=== PATIENT | male | born 1945 | race Caucasian/White ===

== ENCOUNTER → 2017-04-11 | Outpatient (CLI) | payer MEDICARE, BC ==
--- NOTE | 2017-04-11 16:09 | RADIOLOGY REPORT (SQ) ---
EXAM DESCRIPTION: CHEST PA/LATERAL COMPLETED DATE/TIME: 04/11/2017 3:47 pm REASON FOR STUDY: Heart failure, unspecified COMPARISON: AP chest 09/12/2015 CT abdomen pelvis 11/14/2014 EXAM PARAMETERS: NUMBER OF VIEWS: two views TECHNIQUE: Digital Frontal and Lateral radiographic views of the chest acquired. RADIATION DOSE: NA LIMITATIONS: none FINDINGS: LUNGS AND PLEURA: Chronic scarring or bandlike atelectasis in the right middle lobe, seen on lateral view. This is unchanged from 11/14/2014. No fluffy alveolar infiltrates worrisome for edema or pneumonia. No pleural effusions. No pneumotho rax. MEDIASTINUM AND HILAR STRUCTURES: No masses or contour abnormalities. HEART AND VASCULAR STRUCTURES: Heart normal size. No evidence for failure. BONES: Diffuse thoracic spondylotic change HARDWARE: None in the chest. OTHER: No other significant finding. IMPRESSION: NO SIGNIFICANT RADIOGRAPHIC FINDING IN THE CHEST. TECHNICAL DOCUMENTATION: JOB ID: [id number] [employer]- All Rights Reserved
--- NOTE | 2017-04-11 19:52 | EKG REPORT ---
SEVERITY:- NORMAL ECG - SINUS RHYTHM : Confirmed by: Toni Parrish 11-Apr-2017 19:51:37
== END ==
LOC: OD 15:11
PROVIDERS: ATTEND Urology
DX: I50.9 Heart failure, unspecified (principal)
CPT/HCPCS: 71020; 93005; 93010

== ENCOUNTER → 2017-09-12 | Outpatient (CLI) | payer MEDICARE, BC ==
--- NOTE | 2017-09-12 15:25 | RADIOLOGY REPORT (SQ) ---
EXAM DESCRIPTION: PARANASAL SINUSES COMPLETED DATE/TIME: 09/12/2017 3:10 pm REASON FOR STUDY: CLUSTER HEADACHE SYNDROME, UNSPECIFIED, NOT INTRACTABLE,CHRONIC SINUSITIS N40.1 B ENIGN PROSTATIC HYPERPLASIA WITH LOWER URINARY TRACT N52.8 OTHER MALE ERECTILE DYSFUNCTION N41.1 C HRONIC PROSTATITIS COMPARISON: None. NUMBER OF VIEWS: Three views. TECHNIQUE: Images of the paranasal sinuses acquired. LIMITATIONS: None. FINDINGS: ORBITS: No fracture. No foreign body. SINUSES: No mucosal thickening. No air fluid levels. FACIAL BONES: No fracture. OTHER: No other significant finding. IMPRESSION: NO FOREIGN BODY OR FRACTURE. NO PLAIN RADIOGRAPHIC EVIDENCE FOR SINUS DISEASE. TECHNICAL DOCUMENTATION: JOB ID: [id number] [employer]- All Rights Reserved
== END ==
LOC: OD 14:41
PROVIDERS: ATTEND Urology
DX: G44.009 Cluster headache syndrome, unspecified, not intractable (principal); J32.9 Chronic sinusitis, unspecified; N40.1 Benign prostatic hyperplasia with lower urinary tract symptoms; N52.8 Other male erectile dysfunction; N41.1 Chronic prostatitis
CPT/HCPCS: 36415; 70220; 84403; 87070; 87205

== ENCOUNTER 2017-10-10 17:36 | Inpatient (IN) | payer MEDICARE, BC ==
[2017-10-10] MEDS ORDERED: PREDNISONE 20 MG TABLET PO ONE (18:27)
[2017-10-10] MEDS ORDERED: IPRATROPIUM/ALBUTEROL 0.5-2.5 MG/3 ML AMPUL NEB ONE ×3 (18:27→22:44)
[2017-10-10] MEDS ORDERED: ASPIRIN 81 MG TABLET, CHEWABLE PO ONE (18:28)
--- NOTE | 2017-10-10 18:31 | ER Document Report ---
ED Medical Screen (RME) - General Chief Complaint: Shortness Of Breath Stated Complaint: COUGH,SHORTNESS OF BREATH Time Seen by Provider: 10/10/17 18:22 Mode of Arrival: Wheelchair Information source: Patient Notes: 72 yo non dm, non htn, 5 negative cardiac caths prior to 2008 male with hx asbestos, chronic bronchitis. c/o cough, yellow drainage, left chest pain, wheezing, shortness of breath. Symptoms started yesterday. pulse ox down to 89% after breathing tx albuterol. Expiratory wheezing bilaterally. Did get flu shot this year. Sleeps with c pap. TRAVEL OUTSIDE OF THE [place] IN LAST 30 DAYS: No - Related Data Allergies/Adverse Reactions: naproxen [Naproxen] Allergy (Severe, Verified 10/10/17 18:18) ? nefazodone HCl [From Serzone] Allergy (Severe, Verified 10/10/17 18:18) ? venlafaxine HCl [From Effexor] Allergy (Severe, Verified 10/10/17 18:18) hallucinate yohimbine [Yohimbine] Allergy (Severe, Verified 10/10/17 18:18) ? Past Medical History - Past Medical History Cardiac Medical History: Denies: Hx Coronary Artery Disease, Hx Heart Attack, Hx Hypertension Pulmonary Medical History: Reports: Hx Asthma - Denies: Hx Bronchitis, Hx COPD, Hx Pneumonia Neurological Medical History: Denies: Hx Cerebrovascular Accident, Hx Seizures GI Medical History: Reports: Hx Hiatal Hernia, Hx Ulcer. Denies: Hx Hepatitis Infectious Medical History: Denies: Hx Hepatitis Past Surgical History: Denies: Hx Open Heart Surgery, Hx Pacemaker - Immunizations Hx Diphtheria, Pertussis, Tetanus Vaccination: Yes
--- NOTE | 2017-10-10 18:48 | RADIOLOGY REPORT (SQ) ---
EXAM DESCRIPTION: CHEST PA/LAT COMPLETED DATE/TIME: 10/10/2017 6:38 pm REASON FOR STUDY: chest pain COMPARISON: August 2015 EXAM PARAMETERS: NUMBER OF VIEWS: two views TECHNIQUE: Digital Frontal and Lateral radiographic views of the chest acquired. RADIATION DOSE: NA LIMITATIONS: none FINDINGS: LUNGS AND PLEURA: Linear density is identified in the lower chest anteriorly in the latera l projection which could represent atelectatic changes or a pneumonic infiltrate. This density is di fficult to identify on the PA film. Remaining lung maguire are clear. No pleural effusions are ident ified. There is a nonspecific prominence of interstitial markings MEDIASTINUM AND HILAR STRUCTURES: No masses or contour abnormalities. HEART AND VASCULAR STRUCTURES: Heart normal size. No evidence for failure. BONES: No acute findings. HARDWARE: None in the chest. OTHER: No other significant finding. IMPRESSION: Linear density best seen in the lateral projection as noted above which could represent atelectatic changes or minimal infiltrate. Remaining lung maguire are clear. Other findings as noted above TECHNICAL DOCUMENTATION: JOB ID: [id number]- All Rights Reserved
[2017-10-10 19:15] LABS: ABSOLUTE EOSINOPHILS # (AUTO) 0.2 10^3/uL (0.0-0.6); ABSOLUTE LYMPHOCYTES (AUTO) 1.4 10^3/uL (0.5-4.7); ABSOLUTE MONOCYTES (AUTO) 1.1 10^3/uL (0.1-1.4); ABSOLUTE NEUT (AUTO) 8.7 10^3/uL (1.7-8.2); BASOPHILS % (AUTO) 0.2 % (0-2); EOSINOPHILS % (AUTO) 1.6 % (0-6); HEMATOCRIT 43.5 % (37.9-51.0); HEMOGLOBIN 13.8 g/dL (13.5-17.0); MEAN CORPUSCULAR HEMOGLOBIN 23.3 pg (27.0-33.4); MEAN CORPUSCULAR HGB CONC 31.6 g/dL (32.0-36.0); MEAN CORPUSCULAR VOLUME 74 fl (80-97); MONOCYTES % (AUTO) 9.4 % (3-13); PLATELET COUNT 313 10^3/uL (150-450); RED CELL DISTRIBUTION WIDTH 18.8 % (11.5-14.0); SEGMENTED NEUTROPHILS % (AUTO) 76.8 % (42-78); TOTAL CELLS COUNTED % (AUTO) 100 %; WHITE BLOOD COUNT 11.3 10^3/uL (4.0-10.5)
[2017-10-10 19:38] LABS: ALANINE AMINOTRANSFERASE 30 U/L (21-72); ALBUMIN 4.8 g/dL (3.5-5.0); ALKALINE PHOSPHATASE 80 U/L (38-126); ANION GAP 13 (5-19); ASPARTATE AMINO TRANSFERASE 22 U/L (17-59); BILIRUBIN,DIRECT 0.2 mg/dL (0.0-0.4); BILIRUBIN,TOTAL 0.3 mg/dL (0.2-1.3); BLOOD UREA NITROGEN 23 mg/dL (7-20); CALCIUM 10.1 mg/dL (8.4-10.2); CARBON DIOXIDE 30 mmol/L (22-30); CHLORIDE 99 mmol/L (98-107); CREATINE KINASE 120 U/L (55-170); GLUCOSE 110 mg/dL (75-110); POTASSIUM 3.6 mmol/L (3.6-5.0); SODIUM 142.2 mmol/L (137-145); TOTAL PROTEIN 7.9 g/dL (6.3-8.2)
[2017-10-10 19:39] LABS: A TYPE INFLUENZA AG NEGATIVE (NEGATIVE); B INFLUENZA AG NEGATIVE (NEGATIVE)
[2017-10-10 20:02] LABS: TROPONIN I < 0.012 ng/mL
--- NOTE | 2017-10-10 20:24 | EKG REPORT ---
SEVERITY:- NORMAL ECG - SINUS RHYTHM : Confirmed by: Toni Parrish 10-Oct-2017 20:23:44
[2017-10-10] MEDS ORDERED: METHYLPREDNISOLONE INJ 125 MG/2 ML SDV IV ONE (20:53)
[2017-10-10] MEDS ORDERED: LEVOFLOXACIN 750 MG/D5W RTU 750 MG/150 ML RTUPB IV ONE (20:53)
--- NOTE | 2017-10-10 20:56 | ER Document Report ---
ED Respiratory Problem - General Chief Complaint: Shortness Of Breath Stated Complaint: COUGH,SHORTNESS OF BREATH Time Seen by Provider: 10/10/17 18:22 Mode of Arrival: Wheelchair Notes: Patient is a 72-year-old male comes emergency department for chief complaint of difficulty breathing, productive cough with yellow sputum, wheezing, and chills. He states he has been feeling ill for the past 2 days. He denies chest pain unless she is coughing, he denies any other complaints. Past medical history of COPD, chronic bronchitis, asbestos exposure, and he uses CPAP at home. He has had both influenza and pneumonia vaccinations. He does not use home oxygen but he does have a device to measure his oxygen saturation at home and states it was dropping down into the 80s at rest. TRAVEL OUTSIDE OF THE [place] IN LAST 30 DAYS: No - Related Data Allergies/Adverse Reactions: naproxen [Naproxen] Allergy (Severe, Verified 10/10/17 18:18) ? nefazodone HCl [From Serzone] Allergy (Severe, Verified 10/10/17 18:18) ? venlafaxine HCl [From Effexor] Allergy (Severe, Verified 10/10/17 18:18) hallucinate yohimbine [Yohimbine] Allergy (Severe, Verified 10/10/17 18:18) ? Past Medical History - General Information source: Patient - Social History Smoking Status: Never Smoker Chew tobacco use (# tins/day): No Frequency of alcohol use: None Drug Abuse: None Family History: Reviewed & Not Pertinent Patient has suicidal ideation: No Patient has homicidal ideation: No - Past Medical History Cardiac Medical History: Denies: Hx Coronary Artery Disease, Hx Heart Attack, Hx Hypertension Pulmonary Medical History: Reports: Hx Asthma - Denies: Hx Bronchitis, Hx COPD, Hx Pneumonia Neurological Medical History: Denies: Hx Cerebrovascular Accident, Hx Seizures Renal/ Medical History: Denies: Hx Peritoneal Dialysis GI Medical History: Reports: Hx Hiatal Hernia, Hx Ulcer. Denies: Hx Hepatitis Infectious Medical History: Denies: Hx Hepatitis Past Surgical History: Denies: Hx Open Heart Surgery, Hx Pacemaker - Immunizations Hx Diphtheria, Pertussis, Tetanus Vaccination: Yes Hx Pneumococcal Vaccination: 07/04/14 Review of Systems - Review of Systems Constitutional: No symptoms reported EENT: See HPI Cardiovascular: See HPI Respiratory: See HPI Gastrointestinal: No symptoms reported Genitourinary: No symptoms reported Male Genitourinary: No symptoms reported Musculoskeletal: No symptoms reported Skin: No symptoms reported Hematologic/Lymphatic: No symptoms reported Neurological/Psychological: No symptoms reported Physical Exam - Vital signs Vitals: Temp Pulse Resp BP Pulse Ox 98.4 F 112 H 32 H 152/71 H 93 10/10/17 17:38 10/10/17 17:38 10/10/17 17:38 10/10/17 17:38 10/10/17 17:38 Interpretation: Normal - General General appearance: Alert In distress: None - HEENT Head: Normocephalic, Atraumatic Eyes: Normal Pupils: PERRL - Respiratory Respiratory status: Labored, Tachypnea Chest status: Nontender Breath sounds: Decreased air movement, Wheezing Chest palpation: Normal - Cardiovascular Rhythm: Regular, Tachycardia Heart sounds: Normal auscultation, S1 appreciated, S2 appreciated Murmur: No - Abdominal Inspection: Normal Distension: No distension Bowel sounds: Normal Tenderness: Nontender. No: Tender, Guarding Organomegaly: No organomegaly - Back Back: Normal, Nontender. No: Tender - Extremities General upper extremity: Normal inspection, Nontender, Normal color, Normal ROM , Normal temperature General lower extremity: Normal inspection, Nontender, Normal color, Normal ROM , Normal temperature, Normal weight bearing. No: Shiraz's sign - Neurological Neuro grossly intact: Yes Cognition: Normal Orientation: AAOx4 Mariya Coma Scale Eye Opening: Spontaneous Mariya Coma Scale Verbal: Oriented [place] Coma Scale Motor: Obeys Commands Mariya Coma Scale Total: 15 Speech: Normal Motor strength normal: LUE, RUE, LLE, RLE Sensory: Normal - Psychological Associated symptoms: Normal affect, Normal mood - Skin Skin Temperature: Warm Skin Moisture: Dry Skin Color: Normal Course - Re-evaluation Re-evalutation: On initial presentation patient with mild respiratory distress with tachypnea, difficulty completing sentences, expiratory wheezes and a few scattered rhonchi. Oxygen saturation below 94% on room air but when placed on oxygen averages above 94%. Patient given multiple treatments, Solu-Medrol, on reexamination he continues to have wheezing and rhonchi but does sound more clear and no longer has tachypnea. He does appear clinically improved. CBC shows mild leukocytosis, chemistry generally unremarkable, troponin is not elevated. Chest x-ray suggestive of possible early pneumonia. Covering with Levaquin. After final treatment and magnesium patient continues to have wheezing. When he exerts he becomes diaphoretic and he is breathing becomes labored. I was planning to perform ambulation with pulse oxygenation but patient will not be able to tolerate it at this time. Discussed with family and with patient, patient will be discussed with hospitalist. Discussed with Dr. Palencia, internal medicine, patient will be admitted to telemetry observation for COPD exacerbation and pneumonia. - Vital Signs Vital signs: Temp Pulse Resp BP Pulse Ox 98.4 F 77 24 H 138/68 H 91 L 10/10/17 17:38 10/10/17 22:08 10/11/17 06:01 10/11/17 06:01 10/11/17 06:01 - Laboratory Result Diagrams: 10/11/17 05:05 10/11/17 05:05 Laboratory results interpreted by me: 10/10/17 10/10/17 10/10/17 18:51 18:51 23:28 WBC 11.3 H RBC 5.90 H MCV 74 L MCH 23.3 L MCHC 31.6 L RDW 18.8 H Lymphocytes % 12.0 L Absolute Neutrophils 8.7 H VBG pH 7.43 H BUN 23 H Discharge - Discharge Clinical Impression: COPD exacerbation Pneumonia Qualifiers: Pneumonia type: due to unspecified organism Laterality: unspecified laterality Lung location: unspecified part of lung Qualified Code(s): J18.9 - Pneumonia, unspecified organism Condition: Stable Disposition: ADMITTED OBSERVATION Admitting Provider: Hospitalist Unit Admitted: Telemetry
[2017-10-10] MEDS ORDERED: MAGNESIUM SULFATE/D5W 1 GM/100 ML RTUPB IV PRN (22:43)
[2017-10-10 23:38] LABS: VENOUS BLOOD BASE EXCESS 6.1 mmol/L; VENOUS BLOOD HCO3 31.5 mmol/L (20-32); VENOUS BLOOD PCO2 48.4 mmHg (35-63); VENOUS BLOOD PH 7.43 (7.30-7.42)
[2017-10-11] MEDS ORDERED: IPRATROPIUM/ALBUTEROL 0.5-2.5 MG/3 ML AMPUL NEB PRN (00:20)
[2017-10-11] MEDS ORDERED: CHLORPHENIRAMINE MALEATE 4 MG TABLET PO ONE (00:23)
[2017-10-11] MEDS ORDERED: MAGNESIUM HYDROXIDE SUSP 30 ML UDCUP PO PRN (00:26)
[2017-10-11] MEDS: DILTIAZEM HCL 30 MG TABLET PO SCH ×5 (01:00→23:43)
[2017-10-11] MEDS: IPRATROPIUM/ALBUTEROL 0.5-2.5 MG/3 ML AMPUL NEB SCH ×4 (01:45→20:16)
--- NOTE | 2017-10-11 05:04 | PDOC H&P ---
History of Present Illness Admission Date/PCP: 10/11/17 01:06 TYRONE SAENZ PA-C Patient complains of: Shortness of breath and cough History of Present Illness: RICHARDSON LAMBERT is a 72 year old male with a past medical history of COPD, chronic bronchitis, chronic sinusitis, anxiety and depression, chronic pain and PTSD. Patient presents with 4 days of shortness of breath, sinus drainage with postnasal drip and a productive cough of yellow sputum. He denies fever or sore throat. He denies chest pain. He had no improvement from over-the- counter Mucinex. He has had no trial of antibiotics. In the emergency room is found to have rails, leukocytosis, and infiltrate on chest x-ray. He is referred to the hospitalist for observation. Past Medical History Cardiac Medical History: Denies: Coronary Artery Disease, Myocardial Infarction, Hypertension Pulmonary Medical History: Reports: Asthma - , Chronic Obstructive Pulmonary Disease (COPD) Denies: Bronchitis, Pneumonia Neurological Medical History: Denies: Seizures GI Medical History: Reports: Hiatal Hernia Denies: Hepatitis Psychiatric Medical History: Reports: Post Traumatic Stress Disorder Hematology: Denies: Anemia, Sickle Cell Disease Past Surgical History Past Surgical History: Denies: Pacemaker Social History Information Source: Patient, [facility] Records Smoking Status: Never Smoker Frequency of Alcohol Use: None - Advance Directive Resuscitation Status: Full Code Family History Family History: COPD Parental Family History Reviewed: Yes Children Family History Reviewed: Yes Sibling(s) Family History Reviewed.: Yes Medication/Allergy Home Medications: Chlorzoxazone [Parafon Forte Dsc] 500 mg PO QID PRN 01/01/15 Diazepam [Valium] 10 mg PO Q6H PRN 01/01/15 Diltiazem HCl [Cardizem 30 mg Tablet] 1 tab PO Q6 01/01/15 Dutasteride [Avodart Lf 0.5 mg Capsule] 0.5 mg PO DAILY 01/01/15 Esomeprazole Magnesium [Nexium] 40 mg PO DAILY 01/01/15 Fluoxetine HCl [Prozac] 40 mg PO DAILY 01/01/15 Hydrochlorothiazide 25 mg PO DAILY 01/01/15 Nebulizer [Aeroeclipse] 1 each MC DAILY PRN 01/01/15 Oxybutynin Chloride [Ditropan Xl] 5 mg PO DAILY 04/09/15 Pravastatin Sodium [Pravachol] 20 mg PO DAILY 01/01/15 Prednisone [Deltasone 10 mg Tablet] 10 mg PO ASDIR PRN 01/01/15 Quetiapine Fumarate [Seroquel 25 mg Tablet] 25 mg PO QHS 01/01/15 Tamsulosin HCl [Flomax] 0.4 mg PO DAILY 01/01/15 Testosterone Enanthate [Delatestryl] 200 mg IM ASDIR PRN 01/01/15 Topiramate [Topamax 25 mg Tablet] 100 mg PO BID 01/01/15 Aspirin [Aspirin EC] 81 mg PO DAILY 02/10/16 Docusate Sodium [Colace 100 mg Capsule] 100 mg PO DAILY PRN 02/10/16 Doxycycline Hyclate 100 mg PO BID 02/10/16 Potassium Phosphate 280-160-250 1 cap PO ASDIR 02/10/16 Besifloxacin HCl [Besivance 0.6% Oph Susp 5 ml] 1 drop OP ASDIR PRN 02/16/16 Difluprednate [Durezol] 5 ml OP ASDIR PRN 02/16/16 Nepafenac [Ilevro] 1.7 ml OP ASDIR PRN 02/16/16 Allergies/Adverse Reactions: naproxen [Naproxen] Allergy (Severe, Verified 10/10/17 18:18) ? nefazodone HCl [From Serzone] Allergy (Severe, Verified 10/10/17 18:18) ? venlafaxine HCl [From Effexor] Allergy (Severe, Verified 10/10/17 18:18) hallucinate yohimbine [Yohimbine] Allergy (Severe, Verified 10/10/17 18:18) ? Review of Systems Constitutional: PRESENT: fatigue. ABSENT: chills, fever(s), headache(s), night sweats, weakness, weight gain, weight loss Eyes: ABSENT: visual disturbances Ears: ABSENT: hearing changes Cardiovascular: ABSENT: chest pain, dyspnea on exertion, edema, orthropnea, palpitations Respiratory: PRESENT: as per HPI, cough, dyspnea, sputum. ABSENT: hemoptysis Gastrointestinal: ABSENT: abdominal pain, constipation, diarrhea, hematemesis, hematochezia, nausea, vomiting Genitourinary: ABSENT: dysuria, hematuria Musculoskeletal: ABSENT: joint swelling Integumentary: ABSENT: rash, wounds Neurological: ABSENT: abnormal gait, abnormal speech, confusion, dizziness, focal weakness, syncope Psychiatric: PRESENT: anxiety. ABSENT: depression, homidical ideation, suicidal ideation Endocrine: ABSENT: cold intolerance, heat intolerance, polydipsia, polyuria Hematologic/Lymphatic: ABSENT: easy bleeding, easy bruising Physical Exam Vital Signs: Temp Pulse Resp BP Pulse Ox 98.4 F 77 27 H 151/72 H 90 L 10/10/17 17:38 10/10/17 22:08 10/11/17 04:01 10/11/17 04:00 10/11/17 04:01 General appearance: PRESENT: cooperative, mild distress Head exam: PRESENT: atraumatic, normocephalic Eye exam: PRESENT: conjunctiva pink, EOMI, PERRLA. ABSENT: scleral icterus Ear exam: PRESENT: normal external ear exam Mouth exam: PRESENT: moist, tongue midline Neck exam: ABSENT: carotid bruit, JVD, lymphadenopathy, thyromegaly Respiratory exam: PRESENT: accessory muscle use, prolonged expiratory phas, rales, retraction, rhonchi, tachypnea, wheezes Cardiovascular exam: PRESENT: RRR. ABSENT: diastolic murmur, rubs, systolic murmur Pulses: PRESENT: normal dorsalis pedis pul Vascular exam: PRESENT: normal capillary refill GI/Abdominal exam: PRESENT: normal bowel sounds, soft. ABSENT: distended, guarding, mass, organolmegaly, rebound, tenderness Rectal exam: PRESENT: deferred Extremities exam: PRESENT: full ROM. ABSENT: calf tenderness, clubbing, pedal edema Neurological exam: PRESENT: alert, awake, oriented to person, oriented to place , oriented to time, oriented to situation, CN II-XII grossly intact. ABSENT: motor sensory deficit Psychiatric exam: PRESENT: anxious Skin exam: PRESENT: dry, intact, warm. ABSENT: cyanosis, rash Results Impressions: Chest X-Ray 10/10/17 18:29 IMPRESSION: Linear density best seen in the lateral projection as noted above which could represent atelectatic changes or minimal infiltrate. Remaining lung maguire are clear. Other findings as noted above Assessment & Plan - Diagnosis (1) Pneumonia Qualifiers: Pneumonia type: due to unspecified organism Laterality: unspecified laterality Lung location: unspecified part of lung Qualified Code(s): J18.9 - Pneumonia, unspecified organism Is this a current diagnosis for this admission?: Yes Plan: Likely secondary to acute on chronic maxillary sinusitis. Empiric antibiotics, Flonase, chlorpheniramine, albuterol and Atrovent. Follow-up CBC consider additional imaging (2) COPD exacerbation Is this a current diagnosis for this admission?: Yes Plan: Flutter valve, albuterol and Atrovent. (3) Anxiety Is this a current diagnosis for this admission?: Yes Plan: Outpatient regiment. - Time Time Spent: 30 to 50 Minutes
[2017-10-11 05:23] LABS: ABSOLUTE LYMPHOCYTES (AUTO) 0.4 10^3/uL (0.5-4.7); ABSOLUTE NEUT (AUTO) 6.9 10^3/uL (1.7-8.2); BASOPHILS % (AUTO) 0.1 % (0-2); EOSINOPHILS % (AUTO) 0.1 % (0-6); HEMATOCRIT 44.1 % (37.9-51.0); HEMOGLOBIN 14.6 g/dL (13.5-17.0); LYMPHOCYTES % (AUTO) 5.3 % (13-45); MEAN CORPUSCULAR HEMOGLOBIN 24.3 pg (27.0-33.4); MEAN CORPUSCULAR HGB CONC 33.2 g/dL (32.0-36.0); MEAN CORPUSCULAR VOLUME 73 fl (80-97); MONOCYTES % (AUTO) 0.3 % (3-13); PLATELET COUNT 298 10^3/uL (150-450); RED BLOOD COUNT 6.02 10^6/uL (4.35-5.55); RED CELL DISTRIBUTION WIDTH 18.8 % (11.5-14.0); SEGMENTED NEUTROPHILS % (AUTO) 94.2 % (42-78); TOTAL CELLS COUNTED % (AUTO) 100 %; WHITE BLOOD COUNT 7.3 10^3/uL (4.0-10.5)
[2017-10-11 05:56] LABS: BLOOD UREA NITROGEN 19 mg/dL (7-20); CALCIUM 9.5 mg/dL (8.4-10.2); GLUCOSE 149 mg/dL (75-110)
[2017-10-11 05:57] LABS: ANION GAP 12 (5-19); CARBON DIOXIDE 27 mmol/L (22-30); CHLORIDE 103 mmol/L (98-107); POTASSIUM 3.6 mmol/L (3.6-5.0); SODIUM 141.6 mmol/L (137-145)
[2017-10-11] MEDS: LANSOPRAZOLE 30 MG TAB.RAP.DR PO SCH (07:05)
[2017-10-11] MEDS: DIAZEPAM 5 MG TABLET PO PRN (07:49)
[2017-10-11] MEDS: ACETAMINOPHEN 325 MG TABLET PO PRN (08:38)
[2017-10-11 09:44] LABS: MAGNESIUM 2.4 mg/dL (1.6-2.3); PHOSPHORUS 2.8 mg/dL (2.5-4.5)
[2017-10-11] MEDS: GUAIFENESIN 600 MG TABLET.SA PO SCH ×2 (09:54→21:17)
[2017-10-11] MEDS: DOCUSATE SODIUM 100 MG CAPSULE PO PRN (09:54)
[2017-10-11] MEDS: TOPIRAMATE 25 MG TABLET PO SCH ×2 (09:55→21:17)
[2017-10-11] MEDS: QUETIAPINE FUMARATE 25 MG TABLET PO PRN (09:55)
[2017-10-11] MEDS ORDERED: ASPIRIN 81 MG TABLET, ENT COATED PO SCH (10:00)
[2017-10-11] MEDS ORDERED: PREDNISONE 20 MG TABLET PO SCH (10:00)
[2017-10-11] MEDS ORDERED: TAMSULOSIN HCL 0.4 MG CAP.SR.24H PO SCH (10:00)
[2017-10-11] MEDS ORDERED: OXYCODONE-ACETAMINOPHEN 5-325 MG TABLET PO PRN (11:38)
[2017-10-11] MEDS ORDERED: LORAZEPAM INJ 2 MG/1 ML VIAL IV PRN (11:38)
[2017-10-11] MEDS ORDERED: GUAIFENESIN/D-METHORPHAN (200-20 MG) SYRUP 10 ML PO PRN (11:39)
[2017-10-11] MEDS ORDERED: DOXYCYCLINE HYCLATE 100 MG TABLET PO SCH (12:00)
[2017-10-11] MEDS: HEPARIN SOD (PORCINE) 5,000 UNIT/ML 1 ML SYRINGE SUBCUT SCH ×3 (12:27→21:17)
[2017-10-11] MEDS ORDERED: DOXYCYCLINE HYCLATE 100 MG TABLET PO ONE (13:00)
[2017-10-11] MEDS: FLUTICASONE NASAL SPRAY 50 MCG/SPRY 120 SPRAY/16 GM NASL SCH ×2 (14:04→21:17)
[2017-10-11] MEDS: METHYLPREDNISOLONE INJ 125 MG/2 ML SDV IV SCH ×2 (14:04→21:17)
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
[2017-10-11] MEDS: DOXYCYCLINE HYCLATE 100 MG TABLET PO SCH (21:17)
[2017-10-11] MEDS ORDERED: LEVOFLOXACIN 750 MG/D5W RTU 750 MG/150 ML RTUPB IV SCH (22:00)
[2017-10-12] MEDS: DIAZEPAM 5 MG TABLET PO PRN ×4 (00:07→22:54)
[2017-10-12] MEDS: QUETIAPINE FUMARATE 25 MG TABLET PO PRN ×2 (00:11→21:26)
[2017-10-12] MEDS: IPRATROPIUM/ALBUTEROL 0.5-2.5 MG/3 ML AMPUL NEB SCH ×4 (02:06→20:00)
[2017-10-12 04:51] LABS: ABSOLUTE LYMPHOCYTES (AUTO) 0.6 10^3/uL (0.5-4.7); ABSOLUTE MONOCYTES (AUTO) 0.1 10^3/uL (0.1-1.4); ABSOLUTE NEUT (AUTO) 10.2 10^3/uL (1.7-8.2); BASOPHILS % (AUTO) 0.1 % (0-2); HEMATOCRIT 42.4 % (37.9-51.0); HEMOGLOBIN 13.5 g/dL (13.5-17.0); LYMPHOCYTES % (AUTO) 5.1 % (13-45); MEAN CORPUSCULAR HEMOGLOBIN 23.8 pg (27.0-33.4); MEAN CORPUSCULAR HGB CONC 31.9 g/dL (32.0-36.0); MEAN CORPUSCULAR VOLUME 75 fl (80-97); MONOCYTES % (AUTO) 1.1 % (3-13); PLATELET COUNT 274 10^3/uL (150-450); RED BLOOD COUNT 5.69 10^6/uL (4.35-5.55); RED CELL DISTRIBUTION WIDTH 19.3 % (11.5-14.0); SEGMENTED NEUTROPHILS % (AUTO) 93.7 % (42-78); TOTAL CELLS COUNTED % (AUTO) 100 %; WHITE BLOOD COUNT 10.9 10^3/uL (4.0-10.5)
[2017-10-12] MEDS: HEPARIN SOD (PORCINE) 5,000 UNIT/ML 1 ML SYRINGE SUBCUT SCH ×3 (05:03→21:26)
[2017-10-12] MEDS: DILTIAZEM HCL 30 MG TABLET PO SCH ×4 (05:03→21:26)
[2017-10-12] MEDS: METHYLPREDNISOLONE INJ 125 MG/2 ML SDV IV SCH ×3 (05:03→21:26)
[2017-10-12] MEDS: LANSOPRAZOLE 30 MG TAB.RAP.DR PO SCH (05:03)
[2017-10-12 05:08] LABS: ANION GAP 12 (5-19); BLOOD UREA NITROGEN 30 mg/dL (7-20); CALCIUM 9.3 mg/dL (8.4-10.2); CARBON DIOXIDE 26 mmol/L (22-30); CHLORIDE 103 mmol/L (98-107); GLUCOSE 146 mg/dL (75-110); POTASSIUM 3.9 mmol/L (3.6-5.0); SODIUM 141.2 mmol/L (137-145)
[2017-10-12] MEDS ORDERED: OXYCODONE-ACETAMINOPHEN 5-325 MG TABLET PO PRN (08:30)
[2017-10-12] MEDS ORDERED: MAGNESIUM HYDROXIDE SUSP 30 ML UDCUP PO PRN (08:30)
[2017-10-12] MEDS ORDERED: TOPIRAMATE 100 MG TABLET PO SCH (10:00)
[2017-10-12] MEDS: FLUTICASONE NASAL SPRAY 50 MCG/SPRY 120 SPRAY/16 GM NASL SCH ×2 (10:28→21:26)
[2017-10-12] MEDS: TAMSULOSIN HCL 0.4 MG CAP.SR.24H PO SCH (10:28)
[2017-10-12] MEDS: DOXYCYCLINE HYCLATE 100 MG TABLET PO SCH (10:28)
[2017-10-12] MEDS: GUAIFENESIN 600 MG TABLET.SA PO SCH ×2 (10:28→21:26)
[2017-10-12] MEDS: ASPIRIN 81 MG TABLET, ENT COATED PO SCH (10:29)
[2017-10-12] MEDS: DOCUSATE SODIUM 100 MG CAPSULE PO PRN (10:31)
--- NOTE | 2017-10-12 18:22 | PDOC PROGRESS REPORT ---
Subjective Progress Note for:: 10/12/17 Subjective:: 72-year-old gentleman with past medical history of COPD Chronic bronchitis Chronic sinusitis Chronic pain PTSD Anxiety and depression The patient presented to the hospital on October 11 with a 4 day history of shortness of breath postnasal drip and cough productive of yellow sputum. He was diagnosed with left lower lobe pneumonia and started on antibiotics, steroids and azcnf-yci-[id number] neb treatments. Feels somewhat better today. Reason For Visit: COPD EXACERBATION, PNEUMONIA Physical Exam Vital Signs: Temp Pulse Resp BP Pulse Ox 97.7 F 78 18 125/58 L 94 10/12/17 15:11 10/12/17 15:11 10/12/17 15:11 10/12/17 15:11 10/12/17 15:11 Intake & Output 10/11/17 10/12/17 10/13/17 06:59 06:59 06:59 Intake Total 579 487 Output Total 800 850 Balance -221 -363 Weight 99.2 kg Additional comments: Elderly gentleman lying in bed not in acute distress HEENT: Pupils equal reactive to light moist pink oropharyngeal mucosa with no lesions no conjunctival discharge no scleral icterus Neck is supple no JVD trachea is midline Cardiac: S1-S2 regular no murmurs heard no peripheral edema no cyanosis no calf tenderness Respiratory: positive use of accessory muscles, wheezing bilaterally in all lung maguire-somewhat improved. Abdomen: Soft, no focal tenderness, normal bowel sounds, rectal exam deferred Skin: Warm and dry Neurologic: Awake and alert oriented 3 no facial droop speech is clear and fluent Results Laboratory Results: 10/12/17 04:01 10/12/17 04:01 10/12/17 10/12/17 04:01 04:01 WBC 10.9 H RBC 5.69 H Hgb 13.5 Hct 42.4 MCV 75 L MCH 23.8 L MCHC 31.9 L RDW 19.3 H Plt Count 274 Seg Neutrophils % 93.7 H Lymphocytes % 5.1 L Monocytes % 1.1 L Eosinophils % 0.0 Basophils % 0.1 Absolute Neutrophils 10.2 H Absolute Lymphocytes 0.6 Absolute Monocytes 0.1 Absolute Eosinophils 0.0 Absolute Basophils 0.0 Sodium 141.2 Potassium 3.9 Chloride 103 Carbon Dioxide 26 Anion Gap 12 BUN 30 H Creatinine 1.01 Est GFR ( Amer) > 60 Est GFR (Non-Af Amer) > 60 Glucose 146 H Calcium 9.3 Impressions: Chest X-Ray 10/10/17 18:29 IMPRESSION: Linear density best seen in the lateral projection as noted above which could represent atelectatic changes or minimal infiltrate. Remaining lung maguire are clear. Other findings as noted above Assessment & Plan - Diagnosis (1) COPD exacerbation Is this a current diagnosis for this admission?: Yes Plan: Neb treatments, supplemental oxygen, IV steroids. (2) Pneumonia Qualifiers: Pneumonia type: due to unspecified organism Laterality: unspecified laterality Lung location: unspecified part of lung Qualified Code(s): J18.9 - Pneumonia, unspecified organism Is this a current diagnosis for this admission?: Yes Plan: Day 2 of doxycycline p.o. Sputum cultures growing gram-positive cocci in pairs and gram-negative rods. Zosyn has been added for better coverage. We will follow-up on culture results. (3) PTSD (post-traumatic stress disorder) Is this a current diagnosis for this admission?: Yes Plan: Continue outpatient medications (4) Anxiety Is this a current diagnosis for this admission?: Yes - Time Time Spent with patient: 25-34 minutes
[2017-10-12] MEDS ORDERED: CEFTRIAXONE 1 GM/D5W RTU 1 GM/50 ML RTUPB IV SCH (19:00)
[2017-10-12] MEDS: LORAZEPAM INJ 2 MG/1 ML VIAL IV PRN (20:54)
[2017-10-12] MEDS: PIPERACILLIN SODIUM/TAZOBACTAM 3.375 GM in NORMAL SALINE 100 ML IV SCH (21:25)
[2017-10-12] MEDS: TOPIRAMATE 25 MG TABLET PO SCH (21:26)
[2017-10-12] MEDS ORDERED: LANSOPRAZOLE 30 MG TAB.RAP.DR PO PRN (22:51)
[2017-10-13] MEDS: PIPERACILLIN SODIUM/TAZOBACTAM 3.375 GM in NORMAL SALINE 100 ML IV SCH ×4 (02:16→20:34)
[2017-10-13] MEDS: IPRATROPIUM/ALBUTEROL 0.5-2.5 MG/3 ML AMPUL NEB SCH ×4 (02:17→20:16)
[2017-10-13] MEDS: LANSOPRAZOLE 30 MG TAB.RAP.DR PO SCH (05:30)
[2017-10-13] MEDS: METHYLPREDNISOLONE INJ 125 MG/2 ML SDV IV SCH ×3 (05:33→21:49)
[2017-10-13] MEDS: DILTIAZEM HCL 30 MG TABLET PO SCH ×4 (05:33→23:40)
[2017-10-13] MEDS: HEPARIN SOD (PORCINE) 5,000 UNIT/ML 1 ML SYRINGE SUBCUT SCH ×3 (05:34→21:49)
[2017-10-13] MEDS: TAMSULOSIN HCL 0.4 MG CAP.SR.24H PO SCH (09:42)
[2017-10-13] MEDS: FLUTICASONE NASAL SPRAY 50 MCG/SPRY 120 SPRAY/16 GM NASL SCH ×2 (09:43→21:49)
[2017-10-13] MEDS: GUAIFENESIN 600 MG TABLET.SA PO SCH ×2 (09:43→21:50)
[2017-10-13] MEDS: ASPIRIN 81 MG TABLET, ENT COATED PO SCH (09:48)
[2017-10-13] MEDS: DOCUSATE SODIUM 100 MG CAPSULE PO PRN (09:48)
[2017-10-13] MEDS ORDERED: DOXYCYCLINE HYCLATE 100 MG TABLET PO ONE (11:00)
--- NOTE | 2017-10-13 18:51 | PDOC PROGRESS REPORT ---
Subjective Progress Note for:: 10/13/17 Subjective:: 72-year-old gentleman with past medical history of COPD Chronic bronchitis Chronic sinusitis Chronic pain PTSD Anxiety and depression The patient presented to the hospital on October 11 with a 4 day history of shortness of breath postnasal drip and cough productive of yellow sputum. He was diagnosed with left lower lobe pneumonia and started on antibiotics, steroids and aeurw-yus-vsgcl neb treatments. Feels better today. Cough has improved. Reason For Visit: COPD EXACERBATION, PNEUMONIA Physical Exam Vital Signs: Temp Pulse Resp BP Pulse Ox 97.4 F 73 18 121/52 L 95 10/13/17 15:50 10/13/17 15:50 10/13/17 15:50 10/13/17 15:50 10/13/17 15:50 Intake & Output 10/12/17 10/13/17 10/14/17 06:59 06:59 06:59 Intake Total 579 2437 824 Output Total 800 3650 Balance -221 -1213 824 Weight 99.2 kg 100.3 kg Additional comments: Elderly gentleman sitting comfortably in bed HEENT: Pupils equal reactive to light moist pink oropharyngeal mucosa with no lesions no conjunctival discharge no scleral icterus Neck is supple no JVD trachea is midline Cardiac: S1-S2 regular no murmurs heard no peripheral edema no cyanosis no calf tenderness Respiratory: positive use of accessory muscles, wheezing bilaterally in all lung maguire Abdomen: Soft, no focal tenderness, normal bowel sounds, rectal exam deferred Results Laboratory Results: 10/12/17 04:01 10/12/17 04:01 Impressions: Chest X-Ray 10/10/17 18:29 IMPRESSION: Linear density best seen in the lateral projection as noted above which could represent atelectatic changes or minimal infiltrate. Remaining lung maguire are clear. Other findings as noted above Assessment & Plan - Diagnosis (1) COPD exacerbation Is this a current diagnosis for this admission?: Yes (2) Pneumonia Qualifiers: Pneumonia type: due to unspecified organism Laterality: unspecified laterality Lung location: unspecified part of lung Qualified Code(s): J18.9 - Pneumonia, unspecified organism Is this a current diagnosis for this admission?: Yes (3) PTSD (post-traumatic stress disorder) Is this a current diagnosis for this admission?: Yes (4) Anxiety Is this a current diagnosis for this admission?: Yes - Time Time Spent with patient: 25-34 minutes - Plan Summary Plan Summary: Day 3 of doxycycline. The 2 of Zosyn. Continue supplemental oxygen and IV steroids and bronchodilators. Continue outpatient medications for PTSD and anxiety
[2017-10-13] MEDS: ACETAMINOPHEN 325 MG TABLET PO PRN (20:34)
[2017-10-13] MEDS: LORAZEPAM INJ 2 MG/1 ML VIAL IV PRN (20:34)
[2017-10-13] MEDS: DOXYCYCLINE HYCLATE 100 MG TABLET PO SCH (21:49)
[2017-10-13] MEDS: TOPIRAMATE 25 MG TABLET PO SCH (21:50)
[2017-10-13] MEDS: QUETIAPINE FUMARATE 25 MG TABLET PO PRN (21:56)
[2017-10-13] MEDS: DIAZEPAM 5 MG TABLET PO PRN (21:56)
[2017-10-14] MEDS: IPRATROPIUM/ALBUTEROL 0.5-2.5 MG/3 ML AMPUL NEB SCH ×4 (02:05→19:45)
[2017-10-14] MEDS: PIPERACILLIN SODIUM/TAZOBACTAM 3.375 GM in NORMAL SALINE 100 ML IV SCH ×4 (03:11→22:55)
[2017-10-14] MEDS: DILTIAZEM HCL 30 MG TABLET PO SCH ×4 (05:49→23:02)
[2017-10-14] MEDS: METHYLPREDNISOLONE INJ 125 MG/2 ML SDV IV SCH (05:50)
[2017-10-14] MEDS: HEPARIN SOD (PORCINE) 5,000 UNIT/ML 1 ML SYRINGE SUBCUT SCH ×3 (05:50→22:58)
[2017-10-14] MEDS: LANSOPRAZOLE 30 MG TAB.RAP.DR PO SCH (05:50)
[2017-10-14 07:41] LABS: ALANINE AMINOTRANSFERASE 54 U/L (21-72); ALBUMIN 3.8 g/dL (3.5-5.0); ALKALINE PHOSPHATASE 69 U/L (38-126); ANION GAP 9 (5-19); ASPARTATE AMINO TRANSFERASE 42 U/L (17-59); BILIRUBIN,DIRECT 0.2 mg/dL (0.0-0.4); BILIRUBIN,TOTAL 0.5 mg/dL (0.2-1.3); BLOOD UREA NITROGEN 34 mg/dL (7-20); CALCIUM 8.8 mg/dL (8.4-10.2); CARBON DIOXIDE 28 mmol/L (22-30); CHLORIDE 104 mmol/L (98-107); GLUCOSE 144 mg/dL (75-110); MAGNESIUM 2.5 mg/dL (1.6-2.3); PHOSPHORUS 3.5 mg/dL (2.5-4.5); POTASSIUM 3.8 mmol/L (3.6-5.0); SODIUM 140.9 mmol/L (137-145); TOTAL PROTEIN 6.7 g/dL (6.3-8.2)
[2017-10-14] MEDS: FLUTICASONE NASAL SPRAY 50 MCG/SPRY 120 SPRAY/16 GM NASL SCH ×2 (09:27→22:55)
[2017-10-14] MEDS: ASPIRIN 81 MG TABLET, ENT COATED PO SCH (09:28)
[2017-10-14] MEDS: TAMSULOSIN HCL 0.4 MG CAP.SR.24H PO SCH (09:29)
[2017-10-14] MEDS: DOXYCYCLINE HYCLATE 100 MG TABLET PO SCH ×2 (09:29→22:55)
[2017-10-14] MEDS: DOCUSATE SODIUM 100 MG CAPSULE PO PRN (09:29)
[2017-10-14] MEDS: GUAIFENESIN 600 MG TABLET.SA PO SCH ×2 (09:30→22:54)
[2017-10-14] MEDS: DIAZEPAM 5 MG TABLET PO PRN (12:28)
[2017-10-14] MEDS ORDERED: METHYLPREDNISOLONE INJ 125 MG/2 ML SDV IV SCH (14:11)
--- NOTE | 2017-10-14 14:12 | PDOC PROGRESS REPORT ---
Subjective Progress Note for:: 10/14/17 Subjective:: 72-year-old gentleman with past medical history of COPD Chronic bronchitis Chronic sinusitis Chronic pain PTSD Anxiety and depression The patient presented to the hospital on October 11 with a 4 day history of shortness of breath postnasal drip and cough productive of yellow sputum. He was diagnosed with left lower lobe pneumonia and started on antibiotics, steroids and ediia-inq-wxhri neb treatments. He gets episodes of severe anxiety and coronary vasospam for which he takes Valium and Cardizem every 6 hours Breathing and cough have improved. Reason For Visit: COPD EXACERBATION, PNEUMONIA Physical Exam Vital Signs: Temp Pulse Resp BP Pulse Ox 97.6 F 72 18 120/57 L 96 10/14/17 12:10 10/14/17 12:10 10/14/17 12:10 10/14/17 12:10 10/14/17 12:10 Intake & Output 10/13/17 10/14/17 10/15/17 06:59 06:59 06:59 Intake Total 2437 1756 Output Total 3650 1080 Balance -1213 676 Weight 100.3 kg 100.1 kg Additional comments: Elderly gentleman sitting in bed, not in acute distress Neck is supple no JVD trachea is midline Cardiac: S1-S2 regular no murmurs heard no peripheral edema no cyanosis no calf tenderness Respiratory: no use of accessory muscles, faint wheezing bilaterally in all lung maguire- improved Abdomen: Soft, no focal tenderness, normal bowel sounds, rectal exam deferred Results Laboratory Results: 10/12/17 04:01 10/14/17 06:10 10/14/17 06:10 Sodium 140.9 Potassium 3.8 Chloride 104 Carbon Dioxide 28 Anion Gap 9 BUN 34 H Creatinine 0.99 Est GFR ( Amer) > 60 Est GFR (Non-Af Amer) > 60 Glucose 144 H Calcium 8.8 Phosphorus 3.5 Magnesium 2.5 H Total Bilirubin 0.5 AST 42 ALT 54 Alkaline Phosphatase 69 Total Protein 6.7 Albumin 3.8 10/14/17 06:10 NT-Pro-B Natriuret Pep 41 Impressions: Chest X-Ray 10/10/17 18:29 IMPRESSION: Linear density best seen in the lateral projection as noted above which could represent atelectatic changes or minimal infiltrate. Remaining lung maguire are clear. Other findings as noted above Assessment & Plan - Diagnosis (1) COPD exacerbation Is this a current diagnosis for this admission?: Yes Plan: Neb treatments, supplemental oxygen, IV steroids. (2) Pneumonia Qualifiers: Pneumonia type: due to unspecified organism Laterality: unspecified laterality Lung location: unspecified part of lung Qualified Code(s): J18.9 - Pneumonia, unspecified organism Is this a current diagnosis for this admission?: Yes Plan: On Zosyn and Doxycycline (3) PTSD (post-traumatic stress disorder) Is this a current diagnosis for this admission?: Yes Plan: Continue outpatient medications (4) Anxiety Is this a current diagnosis for this admission?: Yes Plan: Ativan as needed. - Time Time Spent with patient: 35 or more minutes
[2017-10-14] MEDS ORDERED: METHYLPREDNISOLONE INJ 40 MG/1 ML SDV IV ONE (15:00)
[2017-10-14] MEDS: DIAZEPAM 5 MG TABLET PO SCH ×2 (17:54→23:02)
[2017-10-14] MEDS: TOPIRAMATE 25 MG TABLET PO SCH (22:55)
[2017-10-14] MEDS: METHYLPREDNISOLONE INJ 40 MG/1 ML SDV IV SCH (22:55)
[2017-10-14] MEDS: QUETIAPINE FUMARATE 25 MG TABLET PO PRN (23:01)
[2017-10-15] MEDS: IPRATROPIUM/ALBUTEROL 0.5-2.5 MG/3 ML AMPUL NEB SCH ×4 (01:54→20:32)
[2017-10-15] MEDS: PIPERACILLIN SODIUM/TAZOBACTAM 3.375 GM in NORMAL SALINE 100 ML IV SCH ×4 (04:44→20:35)
[2017-10-15] MEDS: METHYLPREDNISOLONE INJ 40 MG/1 ML SDV IV SCH ×3 (05:44→22:25)
[2017-10-15] MEDS: DIAZEPAM 5 MG TABLET PO SCH ×4 (05:44→22:26)
[2017-10-15] MEDS: LANSOPRAZOLE 30 MG TAB.RAP.DR PO SCH (05:44)
[2017-10-15] MEDS: HEPARIN SOD (PORCINE) 5,000 UNIT/ML 1 ML SYRINGE SUBCUT SCH ×3 (05:44→22:25)
[2017-10-15] MEDS: DILTIAZEM HCL 30 MG TABLET PO SCH ×3 (05:44→22:26)
--- NOTE | 2017-10-15 09:30 | RADIOLOGY REPORT (SQ) ---
EXAM DESCRIPTION: CHEST PA/LAT COMPLETED DATE/TIME: 10/15/2017 9:19 am REASON FOR STUDY: Pneumonia follow up COMPARISON: 10/10/2017 EXAM PARAMETERS: NUMBER OF VIEWS: two views TECHNIQUE: Digital Frontal and Lateral radiographic views of the chest acquired. RADIATION DOSE: NA LIMITATIONS: none FINDINGS: LUNGS AND PLEURA: Linear opacities at the lung bases favoring subsegmental atelectasis. N o new airspace disease, pleural effusion, or pneumothorax. MEDIASTINUM AND HILAR STRUCTURES: No masses or contour abnormalities. HEART AND VASCULAR STRUCTURES: Heart normal size. No evidence for failure. BONES: No acute findings. HARDWARE: None in the chest. OTHER: No other significant finding. IMPRESSION: PROBABLE SUBSEGMENTAL ATELECTASIS AT THE LUNG BASES. NO CONSOLIDATION. TECHNICAL DOCUMENTATION: JOB ID: [id number] [employer]- All Rights Reserved
[2017-10-15] MEDS: TAMSULOSIN HCL 0.4 MG CAP.SR.24H PO SCH (11:05)
[2017-10-15] MEDS: ASPIRIN 81 MG TABLET, ENT COATED PO SCH (11:05)
[2017-10-15] MEDS: FLUTICASONE NASAL SPRAY 50 MCG/SPRY 120 SPRAY/16 GM NASL SCH ×2 (11:07→22:26)
[2017-10-15] MEDS: GUAIFENESIN 600 MG TABLET.SA PO SCH ×2 (11:07→22:26)
[2017-10-15] MEDS: DOCUSATE SODIUM 100 MG CAPSULE PO PRN (11:07)
[2017-10-15] MEDS: DOXYCYCLINE HYCLATE 100 MG TABLET PO SCH ×2 (11:07→22:26)
--- NOTE | 2017-10-15 11:09 | PDOC PROGRESS REPORT ---
Subjective Progress Note for:: 10/15/17 Subjective:: 72-year-old gentleman with past medical history of COPD Chronic bronchitis Chronic sinusitis Chronic pain PTSD Anxiety and depression The patient presented to the hospital on October 11 with a 4 day history of shortness of breath postnasal drip and cough productive of yellow sputum. He was diagnosed with left lower lobe pneumonia and started on antibiotics, steroids and pwcpp-wuh-qidwj neb treatments. He gets episodes of severe anxiety and coronary vasospam for which he takes Valium and Cardizem every 6 hours. He is requesting that he get the Valium and Cardizem together at 6 AM, 12 noon, 6 PM and 9:30 PM peer He feels better overall. Cough and shortness of breath have improved. He is doing well at rest without supplemental oxygen but tends to get hypoxic with exertion. Chest x-ray was repeated today and it shows improvement. Reason For Visit: COPD EXACERBATION, PNEUMONIA Physical Exam Vital Signs: Temp Pulse Resp BP Pulse Ox 97.3 F 68 18 123/60 96 10/15/17 07:40 10/15/17 07:40 10/15/17 07:40 10/15/17 07:40 10/15/17 07:40 Intake & Output 10/14/17 10/15/17 10/16/17 06:59 06:59 06:59 Intake Total 1756 1720 Output Total 1080 400 Balance 676 1320 Weight 100.1 kg 100.8 kg Additional comments: Elderly gentleman sitting up in his chair, appears comfortable Neck is supple no JVD trachea is midline Cardiac: S1-S2 regular no murmurs heard no peripheral edema no cyanosis no calf tenderness Respiratory: Few scattered rhonchi, no wheezing or crackles heart, normal respiratory effort next Abdomen: Soft, no focal tenderness, normal bowel sounds, rectal exam deferred Skin: Warm and Results Laboratory Results: 10/12/17 04:01 10/14/17 06:10 10/14/17 06:10 NT-Pro-B Natriuret Pep 41 Impressions: Chest X-Ray 10/15/17 00:00 IMPRESSION: PROBABLE SUBSEGMENTAL ATELECTASIS AT THE LUNG BASES. NO CONSOLIDATION. Assessment & Plan - Diagnosis (1) COPD exacerbation Is this a current diagnosis for this admission?: Yes (2) Pneumonia Qualifiers: Pneumonia type: due to unspecified organism Laterality: unspecified laterality Lung location: unspecified part of lung Qualified Code(s): J18.9 - Pneumonia, unspecified organism Is this a current diagnosis for this admission?: Yes (3) PTSD (post-traumatic stress disorder) Is this a current diagnosis for this admission?: Yes (4) Anxiety Is this a current diagnosis for this admission?: Yes - Time Time Spent with patient: 25-34 minutes - Plan Summary Plan Summary: Continue antibiotics, bronchodilators and steroids. Taper steroids gradually. Continue medications for PTSD anxiety and coronary vasospasms.
[2017-10-15] MEDS ORDERED: DILTIAZEM HCL 30 MG TABLET PO SCH (15:00)
[2017-10-15] MEDS: QUETIAPINE FUMARATE 25 MG TABLET PO PRN (22:25)
[2017-10-15] MEDS: TOPIRAMATE 25 MG TABLET PO SCH (22:26)
[2017-10-16] MEDS: IPRATROPIUM/ALBUTEROL 0.5-2.5 MG/3 ML AMPUL NEB SCH ×4 (02:18→20:00)
[2017-10-16] MEDS: PIPERACILLIN SODIUM/TAZOBACTAM 3.375 GM in NORMAL SALINE 100 ML IV SCH ×4 (02:30→22:18)
[2017-10-16] MEDS: DILTIAZEM HCL 30 MG TABLET PO SCH ×4 (05:24→22:19)
[2017-10-16] MEDS: METHYLPREDNISOLONE INJ 40 MG/1 ML SDV IV SCH ×3 (05:24→22:18)
[2017-10-16] MEDS: DIAZEPAM 5 MG TABLET PO SCH ×4 (05:24→22:19)
[2017-10-16] MEDS: LANSOPRAZOLE 30 MG TAB.RAP.DR PO SCH (05:24)
[2017-10-16] MEDS: HEPARIN SOD (PORCINE) 5,000 UNIT/ML 1 ML SYRINGE SUBCUT SCH (05:24)
[2017-10-16] MEDS: FLUTICASONE NASAL SPRAY 50 MCG/SPRY 120 SPRAY/16 GM NASL SCH ×2 (10:23→22:07)
[2017-10-16] MEDS: ASPIRIN 81 MG TABLET, ENT COATED PO SCH (10:23)
[2017-10-16] MEDS: TAMSULOSIN HCL 0.4 MG CAP.SR.24H PO SCH (10:24)
[2017-10-16] MEDS: GUAIFENESIN 600 MG TABLET.SA PO SCH ×2 (10:24→22:18)
[2017-10-16] MEDS: DOXYCYCLINE HYCLATE 100 MG TABLET PO SCH ×2 (10:24→22:18)
[2017-10-16] MEDS: DOCUSATE SODIUM 100 MG CAPSULE PO PRN (10:24)
--- NOTE | 2017-10-16 10:32 | ST Inp Modified Barium Swallow ---
Medical Diagnosis - Medical Diagnoses Medical Diagnosis Description & ICD-10 Code(s): pneumonia ST Inpatient MBS - General Date: 10/16/17 - History History Obtained From: Other - EMR -: Medical - PMH: COPD, chronic bronchitis, chronic sinusitis, anxiety and depression, chronic pain, PTSD Patient admitted to the hospital on 10/11/17 due to shortness of breath for 4 days and productive cough. MBSS ordered due to "concern for aspiration". Medications: Medications Reviewed Allergies: Refer to medical record - Subjective Current Nutritional Means: PO Current PO Diet: Regular Current Symptoms: Pneumonia Pain: Patient reports, 0/5 - Objective Assessment: Upright, Left Lateral - Food Trials Food Trials Used: Thin liquids, Pureed, Regular The Patient: Was Able to Self Feed - Assessment Labial Function: Within Normal Limits Lingual Function: Within Normal Limits Mandibular Function: Within Normal Limits Dentition: Partial Laryngeal Function: Volitional Swallow - WFL - Pharyngeal Stage Initiation of Pharyngeal Stage: Normal Decreased Laryngeal Elevation: Yes - mild Reduced Velo-Pharyngeal Closure: no Reduced Pressure Generation: No Reduced Tongue Base Retraction: No Pre-Swallowing Pooling in Valleculae: Mild - for liquid trials Pre-Swallowing Pooling in Pyriforms: None Reduced Thyro-Hyiod Approximation: No Reduced Epiglottic Excursion: No Reduced Pharyngeal Peristalsis: No Post Swallow Residuals in Valleculae: None Post Swallow Residuals in Pyriforms: None Post Swallow Residuals: no residuals Pahryngeal Stage Comments: Liquids seen to fill valleculae quickly prior to swallow, however, timely swallow reflex initiated, no valleculae residue. Penetration seen x1 for thin liquid. Repeated thin liquid trials with 3 trials of 2 or more consecutive sips, no further penetration seen, no aspiration seen. - Impression/Summary Laryngeal Penetration: Yes - x1 on thin liquids, Flash, during swallow Tracheal Aspiration: no Compensatory Strategies: None required. Patient Presents With: Normal swallow at eval Risk of Aspiration: Minimal Risk of Nutritional Compromise: WNL - Recommendations Solid Diet Recommendations: Regular Liquid Diet Recommendations: Thin Dysphagia Therapy with VISUAL MERCHANDISING ASSISTANT: No Recommended Techniques: Fully Upright During Meal, Small Bites and Sips - Time Total Time: 15 Total Timed Minutes: 15 Charge G Code? - - -: Yes ST F.L. Impairment Category - Rationale Based On Rationale Based On: Func. Asses. Tool Results - Swallowing Current G8996: CH 0% Impaired Goal G8997: CH 0% Impaired Discharge G8998: CH 0% Impaired
[2017-10-16] MEDS ORDERED: ENOXAPARIN SODIUM INJ 40 MG/0.4 ML DISP.SYRIN SUBCUT ONE (13:00)
--- NOTE | 2017-10-16 13:58 | RADIOLOGY REPORT (SQ) ---
EXAM DESCRIPTION: ARON SWALLOW COMPLETED DATE/TIME: 10/16/2017 8:56 am REASON FOR STUDY: Dysphagia, unspecified R 13.10, food in pharynx causing other injury, sequela T17. 228 S concern for aspiration COMPARISON: None. TECHNIQUE: Videofluoroscopic swallowing examination was performed in conjunction with speech patholo gy. Videofluoroscopic imaging was obtained and reviewed and these are the findings: RADIATION DOSE: Total fluoroscopy time: 1 minutes 25 seconds 1 fluoroscopy images saved to PACS. LIMITATIONS: None FINDINGS: The patient was brought into the fluoro room and placed upright on a modified barium swall ow chair. The patient was then given multiple consistencies mixed with barium to swallow under live fluoroscopic video guidance. According to the Speech Pathologist there was laryngeal penetration wit h thin liquids. No other laryngeal penetration and no tracheal aspiration. Normal oral and pharynge al transit time was observed. No significant post swallow residual seen. Please see speech patholog y report for further details and recommendations. IMPRESSION: LARYNGEAL PENETRATION THIN LIQUIDS ONLY. NO TRACHEAL ASPIRATION.PLEASE SEE SPEECH PATHO LOGIST REPORT FOR OTHER FINDINGS AND RECOMMENDATIONS. COMMENT: Quality ID [id number]: Final reports for procedures using fluoroscopy that document radiation exp osure indices, or exposure time and number of fluorographic images (if radiation exposure indices are not available) TECHNICAL DOCUMENTATION: JOB ID: [id number] [employer]- All Rights Reserved
[2017-10-16 14:11] LABS: HEMATOCRIT 47.6 % (37.9-51.0); HEMOGLOBIN 15.1 g/dL (13.5-17.0); MEAN CORPUSCULAR HEMOGLOBIN 23.5 pg (27.0-33.4); MEAN CORPUSCULAR HGB CONC 31.8 g/dL (32.0-36.0); MEAN CORPUSCULAR VOLUME 74 fl (80-97); PLATELET COUNT 326 10^3/uL (150-450); RED BLOOD COUNT 6.43 10^6/uL (4.35-5.55); RED CELL DISTRIBUTION WIDTH 20.2 % (11.5-14.0); WHITE BLOOD COUNT 16.5 10^3/uL (4.0-10.5)
[2017-10-16 14:14] LABS: INTERNATIONAL RATION (INR) 0.98; PROTHROMBIN TIME 13.7 SEC (11.4-15.4)
--- NOTE | 2017-10-16 16:25 | PDOC PROGRESS REPORT ---
Subjective Progress Note for:: 10/16/17 Subjective:: 72-year-old gentleman with past medical history of COPD Chronic bronchitis Chronic sinusitis Chronic pain PTSD Anxiety and depression The patient presented to the hospital on October 11 with a 4 day history of shortness of breath postnasal drip and cough productive of yellow sputum. He was diagnosed with left lower lobe pneumonia and started on antibiotics, steroids and huqcl-czh-vgnzl neb treatments. He gets episodes of severe anxiety and coronary vasospam for which he takes Valium and Cardizem every 6 hours. He is requesting that he get the Valium and Cardizem together at 6 AM, 12 noon, 6 PM and 9:30 PM He feels better overall. Cough and shortness of breath have improved. He is doing well at rest without supplemental oxygen but tends to get hypoxic with exertion. Chest x-ray was repeated on October 16 and it shows improvement. Monday the patient was telling the nurse that he gets severe anxiety feels like jumping out of the window if he does not get his Valium and Cardizem on time. He tells me that the nurse reportedly told him to go ahead and jump out of the window if he felt like it. The patient became very agitated at this and reportedly told the nurse that he was feeling suicidal. He tells me that he does not have any suicidal or homicidal ideations. He has no intentions to harm himself or anybody else. His cough and dyspnea have improved. Reason For Visit: COPD EXACERBATION, PNEUMONIA Physical Exam Vital Signs: Temp Pulse Resp BP Pulse Ox 98.3 F 82 18 131/65 H 94 10/16/17 11:12 10/16/17 13:56 10/16/17 13:56 10/16/17 11:12 10/16/17 11:12 Intake & Output 10/15/17 10/16/17 10/17/17 06:59 06:59 06:59 Intake Total 1720 2976 Output Total 400 1610 Balance 1320 1366 Weight 100.8 kg 100.8 kg Additional comments: Elderly gentleman sitting up in bed, not in distress Neck is supple no JVD trachea is midline Cardiac: S1-S2 regular no murmurs heard no peripheral edema no cyanosis no calf tenderness Respiratory: Few scattered rhonchi, no wheezing or crackles heart, normal respiratory effort next Abdomen: Soft, no focal tenderness, normal bowel sounds, rectal exam deferred Skin: Warm and dry Results Laboratory Results: 10/16/17 13:57 10/16/17 13:57 10/16/17 10/16/17 13:57 13:57 WBC 16.5 H RBC 6.43 H Hgb 15.1 Hct 47.6 MCV 74 L MCH 23.5 L MCHC 31.8 L RDW 20.2 H Plt Count 326 Creatinine 0.84 Est GFR ( Amer) > 60 Est GFR (Non-Af Amer) > 60 10/14/17 06:10 NT-Pro-B Natriuret Pep 41 Impressions: Chest X-Ray 10/15/17 00:00 IMPRESSION: PROBABLE SUBSEGMENTAL ATELECTASIS AT THE LUNG BASES. NO CONSOLIDATION. Modified Barium Swallow 10/16/17 00:00 IMPRESSION: LARYNGEAL PENETRATION THIN LIQUIDS ONLY. NO TRACHEAL ASPIRATION.PLEASE SEE SPEECH PATHOLOGIST REPORT FOR OTHER FINDINGS AND RECOMMENDATIONS. Assessment & Plan - Diagnosis (1) COPD exacerbation Is this a current diagnosis for this admission?: Yes (2) Pneumonia Qualifiers: Pneumonia type: due to unspecified organism Laterality: unspecified laterality Lung location: unspecified part of lung Qualified Code(s): J18.9 - Pneumonia, unspecified organism Is this a current diagnosis for this admission?: Yes (3) PTSD (post-traumatic stress disorder) Is this a current diagnosis for this admission?: Yes (4) Anxiety Is this a current diagnosis for this admission?: Yes - Time Time Spent with patient: 25-34 minutes - Plan Summary Plan Summary: Continue antibiotics, bronchodilators and steroids. Taper steroids gradually. Continue medications for PTSD anxiety and coronary vasospasms.
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
[2017-10-16] MEDS: QUETIAPINE FUMARATE 25 MG TABLET PO PRN (22:17)
[2017-10-16] MEDS: TOPIRAMATE 25 MG TABLET PO SCH (22:19)
[2017-10-17] MEDS: IPRATROPIUM/ALBUTEROL 0.5-2.5 MG/3 ML AMPUL NEB SCH ×3 (01:53→13:36)
[2017-10-17] MEDS: PIPERACILLIN SODIUM/TAZOBACTAM 3.375 GM in NORMAL SALINE 100 ML IV SCH ×3 (03:30→14:44)
[2017-10-17] MEDS: DIAZEPAM 5 MG TABLET PO SCH ×2 (06:09→11:19)
[2017-10-17] MEDS: METHYLPREDNISOLONE INJ 40 MG/1 ML SDV IV SCH ×2 (06:09→13:39)
[2017-10-17] MEDS: LANSOPRAZOLE 30 MG TAB.RAP.DR PO SCH (06:09)
[2017-10-17] MEDS: DILTIAZEM HCL 30 MG TABLET PO SCH ×2 (06:09→11:19)
[2017-10-17] MEDS: DOCUSATE SODIUM 100 MG CAPSULE PO PRN (09:31)
[2017-10-17] MEDS: TAMSULOSIN HCL 0.4 MG CAP.SR.24H PO SCH (09:31)
[2017-10-17] MEDS: DOXYCYCLINE HYCLATE 100 MG TABLET PO SCH (09:31)
[2017-10-17] MEDS: GUAIFENESIN 600 MG TABLET.SA PO SCH (09:31)
[2017-10-17] MEDS: FLUTICASONE NASAL SPRAY 50 MCG/SPRY 120 SPRAY/16 GM NASL SCH (09:32)
[2017-10-17] MEDS: ASPIRIN 81 MG TABLET, ENT COATED PO SCH (09:32)
[2017-10-17] MEDS ORDERED: ENOXAPARIN SODIUM INJ 40 MG/0.4 ML DISP.SYRIN SUBCUT SCH (10:00)
[2017-10-17 15:17] VITALS: BP 118/60
--- NOTE | 2017-10-17 17:09 | PDOC DISCHARGE SUMMARY ---
General - Admit/Disc Date/PCP Admission Date/Primary Care Provider: 10/11/17 17:51 TYRONE SAENZ PA-C Discharge Date: 10/17/17 - Discharge Diagnosis (1) Acute bronchitis Is this a current diagnosis for this admission?: Yes Summary: Pt was placed on steroids, breathing treatments, and antibiotics. Patient's respiratory function did improve and was no longer requiring oxygen at time of discharge. Patient does not have formal diagnosis of COPD however suspect that most likely this is a result of COPD. Patient will need to follow with pulmonary for formal lung studies test. (2) Anxiety Is this a current diagnosis for this admission?: Yes Summary: Patient will continue on patient's home medications (3) COPD exacerbation Is this a current diagnosis for this admission?: Yes Summary: Suspect acute exacerbation of COPD: Patient does not have formal diagnosis of COPD therefore he will need to be seen by her doctor for formal lung study test to confirm diagnosis. However patient was placed on breathing treatments, steroids, and antibiotics and has demonstrated significant improvement. Patient was requiring oxygen however at time of discharge patient was satting 95 % on room air. (4) PTSD (post-traumatic stress disorder) Is this a current diagnosis for this admission?: Yes Summary: Patient will continue on home medications. Patient was seen by mental health here during hospital stay due to, and he had made however patient was not suicidal or homicidal and this was confirmed by mental health provider Dr. Rivers (5) Pneumonia Is this a current diagnosis for this admission?: Yes Summary: Ruled out. Patient's chest x-ray was not consistent with pneumonia. - Additional Information Resuscitation Status: Full Code Discharge Diet: Cardiac Discharge Activity: Activity As Tolerated Prescriptions: Doxycycline Hyclate [Vibramycin 100 mg Tablet] 100 mg PO Q12 #10 tablet Ipratropium/Albuterol Sulfate [Duoneb 3 ml Ampul] 3 ml NEB RTQ6 #100 vial.neb Methylprednisolone [Medrol Dosepack (4 mg/Tab) 21 Tab/Dosepak] 4 mg PO ASDIR PRN #21 tab.ds.pk PRN Reason: Home Medications: Albuterol Sulfate [Proair HFA Inhalation Aerosol 8.5 gm MDI] 1 puff IH Q4HP PRN 10/11/17 Albuterol Sulfate [Ventolin 0.083% Neb 2.5 mg/3 mL Ampul] 3 ml NEB Q6HP PRN Aspirin [Adult Low Dose Aspirin EC] 81 mg PO QPM 10/11/17 Chlorzoxazone [Parafon Forte Dsc 500 mg Tablet] 500 mg PO QID 10/11/17 Desloratadine [Clarinex] 5 mg PO QAM 10/11/17 Diazepam [Valium] 10 mg PO QID 10/11/17 Diltiazem HCl [Cardizem 30 mg Tablet] 30 mg PO QID 10/11/17 Diphenhydramine HCl [Benadryl 25 mg Capsule] 25 mg PO DAILYP PRN 10/11/17 Dutasteride [Avodart] 0.5 mg PO DAILY 10/11/17 Esomeprazole Mag Trihydrate [Nexium] 40 mg PO DAILY 10/11/17 Fluoxetine HCl [Prozac] 40 mg PO DAILY 10/11/17 Fluticasone Propionate [Flonase Nasal [place] 50 Mcg/[place] 16 gm] 1 spray NASL QHS 10/11/17 Hydrochlorothiazide [Hydrodiuril 25 mg Tablet] 25 mg PO DAILY 10/11/17 Hydrocortisone Acetate [Anucort-Hc] 25 mg PO BID 10/11/17 Lactulose [Constulose 10 gm/15 mL Oral Solution] 20 ml PO QHS 10/11/17 Loteprednol Etabonate [Lotemax] 1 drop OU DAILY 10/11/17 Lysine HCl [l-Lysine] 500 mg PO DAILYP PRN 10/11/17 Mineral Oil/Petrolatum,White [Refresh P.m. Ointment] 0.25 inch OU QPM 10/11/17 Nystatin [Mycostatin Cream 15 gm] 1 applic TOP BID 10/11/17 Olopatadine HCl [Pataday] 1 drop OU QAM 10/11/17 Pravastatin Sodium [Pravachol] 20 mg PO DAILY 10/11/17 Propylene Glycol [Lubricant Eye Drops] 1 drop OU TIDP PRN 10/11/17 Psyllium Husk (with Sugar) [Metamucil Packet] 3.4 gm PO MEALS 10/11/17 Quetiapine Fumarate [Seroquel 25 mg Tablet] 25 mg PO QHS 10/11/17 Similisan Eye Drop 1 drop OU BID 10/11/17 Tamsulosin HCl [Flomax] 0.4 mg PO DAILY 10/11/17 Testosterone Cypionate [Depo-Testosterone] 1.5 ml IM [id number] 10/11/17 Topiramate [Topamax 25 mg Tablet] 75 mg PO QHS 10/11/17 Doxycycline Hyclate [Vibramycin 100 mg Tablet] 100 mg PO Q12 #10 tablet Ipratropium/Albuterol Sulfate [Duoneb 3 ml Ampul] 3 ml NEB RTQ6 #100 vial.neb Methylprednisolone [Medrol Dosepack (4 mg/Tab) 21 Tab/Dosepak] 4 mg PO ASDIR PRN #21 tab.ds.pk 10/17/17 History of Present Illness Patient complains of: Chief complaint of shortness of breath and cough History of Present Illness: RICHARDSON LAMBERT is a 72 year old male sent to the emergency room complaining of shortness of breath and cough patient had complained of 4 days of nasal drainage with postnasal drip and productive cough. Patient denied fever or sore throat. Patient's chest x-ray demonstrated evidence consistent with atelectasis but no infiltrate was noted at time of admission. Patient was placed on breathing treatments, steroids, and antibiotics for presumed COPD exacerbation/acute bronchitis. Patient demonstrated improvement throughout hospitalization for above diagnosis. However during hospitalization patient had made comment that he would jump out of the window if he did not see a medicine doctor. Mental health was contacted to evaluate patient's psyche. Mental health stated the patient was not suicidal or homicidal. Hospital Course Hospital Course: RICHARDSON LAMBERT is a 72 year old male sent to the emergency room complaining of shortness of breath and cough patient had complained of 4 days of nasal drainage with postnasal drip and productive cough. Patient denied fever or sore throat. Patient's chest x-ray demonstrated evidence consistent with atelectasis but no infiltrate was noted at time of admission. Patient was placed on breathing treatments, steroids, and antibiotics for presumed COPD exacerbation/acute bronchitis. Patient demonstrated improvement throughout hospitalization for above diagnosis. However during hospitalization patient had made comment that he would jump out of the window if he did not see a medicine doctor. Mental health was contacted to evaluate patient's psyche. Mental health stated the patient was not suicidal or homicidal. Physical Exam Vital Signs: Temp Pulse Resp BP Pulse Ox 98.1 F 74 16 118/60 94 10/17/17 15:11 10/17/17 15:11 10/17/17 15:11 10/17/17 15:11 10/17/17 15:11 Intake & Output 10/16/17 10/17/17 10/18/17 06:59 06:59 06:59 Intake Total 2976 3703 360 Output Total 1610 3150 Balance 1366 553 360 Weight 100.8 kg General appearance: PRESENT: no acute distress, well-developed, well-nourished Head exam: PRESENT: atraumatic, normocephalic Eye exam: PRESENT: conjunctiva pink, EOMI. ABSENT: scleral icterus Ear exam: PRESENT: normal external ear exam Mouth exam: PRESENT: moist, tongue midline Neck exam: ABSENT: carotid bruit, JVD, lymphadenopathy, thyromegaly Respiratory exam: PRESENT: other - Good breath sounds heard in all lung [place], no wheezing, no prolonged expiratory phase appreciated, no accessory muscle use. Cardiovascular exam: PRESENT: RRR. ABSENT: diastolic murmur, rubs, systolic murmur Pulses: PRESENT: normal dorsalis pedis pul Vascular exam: PRESENT: normal capillary refill GI/Abdominal exam: PRESENT: normal bowel sounds, soft. ABSENT: distended, guarding, mass, organolmegaly, rebound, tenderness Rectal exam: PRESENT: deferred Extremities exam: PRESENT: full ROM. ABSENT: calf tenderness, clubbing, pedal edema Neurological exam: PRESENT: alert, awake, oriented to person, oriented to place , oriented to time, oriented to situation, CN II-XII grossly intact. ABSENT: motor sensory deficit Psychiatric exam: PRESENT: flat affect Skin exam: PRESENT: dry, intact, warm. ABSENT: cyanosis, rash Results Laboratory Results: 10/16/17 13:57 10/16/17 13:57 10/14/17 06:10 NT-Pro-B Natriuret Pep 41 Impressions: Chest X-Ray 10/15/17 00:00 IMPRESSION: PROBABLE SUBSEGMENTAL ATELECTASIS AT THE LUNG BASES. NO CONSOLIDATION. Modified Barium Swallow 10/16/17 00:00 IMPRESSION: LARYNGEAL PENETRATION THIN LIQUIDS ONLY. NO TRACHEAL ASPIRATION.PLEASE SEE SPEECH PATHOLOGIST REPORT FOR OTHER FINDINGS AND RECOMMENDATIONS. Plan Time Spent: Greater than 30 Minutes
== END 2017-10-17 16:07 | disposition home health service (06) | DRG 192 ==
LOC: ER 17:36 → EH 10-11 01:06 → 4N 10-11 15:35 → OBSVTOIN 10-11 17:51
PROVIDERS: ADMIT Internal Medicine; ATTEND Internal Medicine
PROC: 3E0F73Z Introduction of Anti-inflammatory into Respiratory Tract, Via Natural or Artificial Opening (ICD-10-PCS; principal; 2017-10-11)
PROC: 5A09457 Assistance with Respiratory Ventilation, 24-96 Consecutive Hours, Continuous Positive Airway Pressure (ICD-10-PCS; 2017-10-11)
DX: J44.1 Chronic obstructive pulmonary disease with (acute) exacerbation (principal); J20.9 Acute bronchitis, unspecified; J44.0 Chronic obstructive pulmonary disease with (acute) lower respiratory infection; F41.9 Anxiety disorder, unspecified; F43.10 Post-traumatic stress disorder, unspecified; J32.9 Chronic sinusitis, unspecified; F32.9 Major depressive disorder, single episode, unspecified; G89.29 Other chronic pain; K44.9 Diaphragmatic hernia without obstruction or gangrene; J01.00 Acute maxillary sinusitis, unspecified; J32.0 Chronic maxillary sinusitis; Z79.82 Long term (current) use of aspirin; Z79.899 Other long term (current) drug therapy; Z88.8 Allergy status to other drugs, medicaments and biological substances; Z83.6 Family history of other diseases of the respiratory system
CPT/HCPCS: 36415; 71046; 74230; 80048; 80053; 82550; 82553; 82565; 82803; 83735; 83880; 84100; 84484; 85025; 85027; 85610; 85730; 87040; 87070; 87205; 87804; 93005; 93010; 94640; 94660; 94668; 94799; 96365; 96372; 96375; 96376; 99285; G0378; G8978-GP; G8979-GP; G8980-GP; G8996-GN; G8997-GN; G8998-GN; J1644; J1650; J1956; J2060; J2543; J2920; J2930; J3475; J3490; J7512; J7620

== ENCOUNTER → 2020-01-25 | Outpatient (CLI) | payer MEDICARE, BC ==
--- NOTE | 2020-01-25 11:17 | ER RDC ASSESSMENT REPORT ---
Intake - In the Last 14 days Have you traveled outside [place]?: No Have you been in close contact with someone CONFIRMED: No Worked in Healthcare?: No - Symptoms Subjective Fever([place] feverish): No Chills: Yes Muscule Aches: Yes Runny Nose: Yes Sore Throat: No Cough (New or worsening chronic cough): Yes Shortness of breath: Yes Nausea or Vomiting: Yes Headache: Yes Abdominal Pain: Yes Diarrhea(3 or more loose stools in last 24 hours): Yes - Do you have any of the following Chronic lung disease: Asthma or emphysema or COPD: Yes Chronic Lung Disease Comment: COPD Cystic Fibrosis: No Diabetes: No High Blood Pressure: Yes Cardiovascular Disease: Yes Chronic Kidney Disease: Yes Chronic Liver Disease: No Chronic blood disorder like Sickle Cell Disease: No Weak immune system due to disease or medication: No Neurologic condition that limits movement: No Developmental delay - Moderate to Severe: No Recent (within past 2 weeks) or current : No Morbid Obesity (>100 pounds over ideal weight): No Other Comment: History of anxiety and PTSD. - Objective Temperature: 96.6 F Pulse Rate: 88 Respiratory Rate: 14 Blood Pressure: 148/75 O2 Sat by Pulse Oximetry: 95 Objective: Patient is a well-appearing 74-year-old male who presents today for COVID-19 screening. Disposition: Home; Selfcare General - General Stated Complaint: Upper respiratory symptoms x1 month Mode of Arrival: Ambulatory Information source: Patient Notes: The patient was evaluated during the global COVID-19 pandemic. That diagnosis was suspected/considered upon initial presentation. Their evaluation, treatment, and testing was consistent with current guidelines for patients who present with complaints or symptoms that may be related to COVID-19. - HPI Patient complains to provider of: Upper respiratory symptoms x1 month Onset: Other - 1 month Onset/Duration: Persistent Quality of pain: Achy Severity: Mild Context: Generalized body aches. Associated symptoms: Body/muscle aches, Productive cough, Diarrhea, Headache, Nausea, Vomiting, Rhinnorhea, Shortness of breath Exacerbated by: Supine Relieved by: Denies Similar symptoms previously: No Recently seen / treated by doctor: No - Related Data Allergies/Adverse Reactions: naproxen [Naproxen] Allergy (Severe, Verified 10/10/17 18:18) ? nefazodone HCl [From Serzone] Allergy (Severe, Verified 10/10/17 18:18) ? venlafaxine HCl [From Effexor] Allergy (Severe, Verified 10/10/17 18:18) hallucinate yohimbine [Yohimbine] Allergy (Severe, Verified 10/10/17 18:18) ? Past Medical History - Social History Smoking Status: Never Smoker Cigarette use (# per day): No Chew tobacco use (# tins/day): No Smoking Education Provided: No Frequency of alcohol use: None Drug Abuse: None Occupation: Retired Lives with: Family Family History: Reviewed & Not Pertinent Patient has suicidal ideation: No Patient has homicidal ideation: No - Past Medical History Cardiac Medical History: Denies: Hx Coronary Artery Disease, Hx Heart Attack, Hx Hypertension Pulmonary Medical History: Reports: Hx Asthma - INFANT Denies: Hx Bronchitis, Hx COPD, Hx Pneumonia Neurological Medical History: Denies: Hx Cerebrovascular Accident, Hx Seizures Renal/ Medical History: Denies: Hx Peritoneal Dialysis GI Medical History: Reports: Hx Hiatal Hernia, Hx Ulcer. Denies: Hx Hepatitis Psychiatric Medical History: Reports: Hx Depression, Hx Post Traumatic Stress Disorder Infectious Medical History: Denies: Hx Hepatitis Past Surgical History: Denies: Hx Open Heart Surgery, Hx Pacemaker Physical Exam - General In distress: None Notes: PHYSICAL EXAMINATION: GENERAL: Well-appearing and in no acute distress. HEAD: Atraumatic, normocephalic. EYES: sclera anicteric, conjunctiva are normal. ENT: nares patent. Moist mucous membranes. NECK: Normal range of motion, supple without lymphadenopathy. LUNGS: CTAB and equal. No wheezes rales or rhonchi. HEART: Regular rate and rhythm without murmurs. EXTREMITIES: Normal range of motion, no pitting edema. No cyanosis. BACK: No midline or CVA tenderness. NEUROLOGICAL: Cranial nerves grossly intact. Normal speech. Normal gait. PSYCH: Normal mood, normal affect. SKIN: Warm, Dry, normal color and turgor, no obvious lesions or rash noted. Diagnostic Results Laboratory Results: Patient advised at this time they are considered a Person Under Investigation (PUI) for the COVID-19 Coronavirus. They have been made aware it is currently taking 5-7 days to receive their results, and [facility] will call to advise them of their result, whether it is POSITIVE or NEGATIVE. Patient Education/Counseling Counseling/Education: Patient presents with upper respiratory symptoms worrisome for possible COVID- 19. Patient does not have symptoms worrisome as an emergency such as difficulty breathing, shortness of breath, chest pain, pressure, confusion or cyanosis. Patient appears suitable for discharge. Patient's vital signs are stable and patient is nontoxic in appearance. Good return precautions have been discussed with patient, patient verbalized understanding and is agreeable with discharge plan of care at this time. Patient provided COVID-19 discharge instructions to include: As a person under investigation for COVID-19, the [facility], division of public health advises you to adhere to the following guidance until your test results are reported to you. If your test result is positive, you will receive additional information from your provider and your local health department at that time. Remain at home until you are cleared by the health provider or public health authorities. Keep a log of visitors to your home, notify any visitors to your home of your isolation status. If you plan to move to a new address or leave the [facility], notify the local [facility] department in your County. Call your doctor or seek care if you have an urgent medical need. Before seeking medical care, call ahead to get instructions from the provider before arriving at the medical office clinic or hospital. Notify them that you are being tested for the virus that causes COVID-19 so that arrangements can be made, as necessary, to prevent transmission to others in the healthcare setting. Next, notify the local health department in your county. If a medical emergency arises and you need to call 911, inform dispatch and the first responders that you are being tested for the virus that causes COVID-19. Next, notify the [facility] health department in your county. Guidance for worsening S/SX: For worsening symptoms, patient has been advised to contact their Primary Care Provider, or go to the nearest Emergency Department. RDC Discharge - Discharge Clinical Impression: COVID-19 Screening URI (upper respiratory infection) Qualifiers: URI type: unspecified URI Qualified Code(s): J06.9 - Acute upper respiratory infection, unspecified Condition: Stable Disposition: Home; Selfcare
[2020-01-25 11:22] VITALS: BP 148/75
== END ==
LOC: RDC 10:39
PROVIDERS: ATTEND Nurse Practitioner Family
DX: J06.9 Acute upper respiratory infection, unspecified (principal); Z20.828 Contact with and (suspected) exposure to other viral communicable diseases; R05 Cough; R06.02 Shortness of breath; R68.83 Chills (without fever); R51 Headache; R11.2 Nausea with vomiting, unspecified; R10.9 Unspecified abdominal pain; R19.7 Diarrhea, unspecified; J44.9 Chronic obstructive pulmonary disease, unspecified; J34.89 Other specified disorders of nose and nasal sinuses; I10 Essential (primary) hypertension; M79.10 Myalgia, unspecified site; Z88.8 Allergy status to other drugs, medicaments and biological substances
CPT/HCPCS: U0003; G0463; 87635; 99211